=== PATIENT | female | born 1995 | race Hispanic/Latino ===

== ENCOUNTER 2022-08-13 16:20 | Emergency (ER) | payer SELFPAY ==
[2022-08-13] MEDS ORDERED: Ketorolac Tromethamine 30 MG/ML VIAL ONE (17:47)
[2022-08-13] MEDS ORDERED: diphenhydrAMINE 50 MG/ML VIAL ONE (17:47)
[2022-08-13] MEDS ORDERED: Metoclopramide HCl 10 MG/2 ML VIAL ONE (17:47)
== END 2022-08-13 19:25 | disposition home or self-care (01) ==
LOC: CSHERS 16:20
DX: R51.9 Headache, unspecified (principal)
CPT/HCPCS: 96365; 96375; J1200; J1885; J2765

== ENCOUNTER 2022-10-13 19:15 | Emergency (ER) | payer OTHER ==
[2022-10-13] MEDS ORDERED: Acetaminophen 500 MG TAB ONE (20:39)
== END 2022-10-13 21:52 | disposition home or self-care (01) ==
LOC: CSHERS 19:15
DX: J18.9 Pneumonia, unspecified organism (principal)
CPT/HCPCS: 71045; 93005

== ENCOUNTER 2022-10-22 16:09 | Observation (INO) | payer MEDICAID, OTHER ==
[2022-10-22] MEDS ORDERED: Ketorolac Tromethamine 30 MG/ML VIAL ONE (17:35)
[2022-10-22 18:06] LABS: Bilirubin Neg (Negative); Blood, Urine 10 (Negative); Clarity Clear (Clear); Glucose, Urine (Dipstick) Normal (Negative); Ketone, Urine 5 mg/dL (Negative); Leukocyte Negative (Negative); Nitrite Negative (Negative); Protein, Urine (Dipstick) 30 mg/dl (Neg-Trace); Specific Gravity, Urine 1.015 (1.005-1.030); Urobilinogen Normal mg/dL (Less than 2)
[2022-10-22 18:08] LABS: Pregnancy Test - Urine (BHCG) Negative (Negative)
[2022-10-22 18:09] LABS: Pregu Control Background? CLEAR/WHITE (CLR/WHITE); Pregu Control Bar Appear? YES (CONTROL BAR); Specific Gravity 1.015 (1.002-1.036)
[2022-10-22 18:18] LABS: Bacteria/HPF 1+ HPF (None Seen); CAUTI Indications for Culture Pelvic or flank pain; RBC/HPF 0-3 HPF (0-3); WBC/HPF 0-3 HPF (0-3)
[2022-10-22 18:19] LABS: Mucous/LPF 2+ LPF (<2+)
[2022-10-22 18:20] LABS: Urine Culture Reflex No No
[2022-10-22] MEDS ORDERED: Morphine 4 MG/ML VIAL ONE (18:59)
[2022-10-22] MEDS ORDERED: Diazepam 10 MG/2 ML SYRINGE ONE (19:00)
[2022-10-22 19:42] LABS: #Eosinphils 0.2 10x3/uL (0.0-0.5); #Monocytes 0.9 10x3/uL (0.0-1.1); %Basophils 0.4 % (0.0-2.0); %Eosinophils 2.5 % (0.0-6.0); %Lymphocytes 18.1 % (18.0-47.0); %Monocytes 12.4 % (0.0-10.0); %Neutrophils 66.3 % (40.0-75.0); Hemoglobin 8.8 g/dL (12.0-15.5); Mean Corpuscular HGB CONC 29.5 g/dL (32.0-36.0); Mean Corpuscular Hemoglobin 22.1 pg (27.0-33.0); Mean Corpuscular Volume 74.9 fl (81.6-98.3); Mean Platelet Volume 9.4 fl (7.4-10.4); Platelet Count 410 10x3/uL (150-450); RBC Distribution Width 17.6 % (11.5-14.5); Red Blood Cell (RBC) Count 3.98 10x6/uL (3.90-5.03); White Blood Cell (WBC) Count 7.5 10x3/uL (3.5-10.5)
[2022-10-22 19:51] LABS: ALT (SGPT) 29 U/L (8-55); AST (SGOT) 27 U/L (5-34); Albumin 3.9 g/dL (3.5-5.0); Alkaline Phosphatase 69 U/L (40-110); Anion Gap 11 mmol/L (10-20); BUN (Urea Nitrogen) 7 mg/dL (7.0-18.7); Bilirubin, Total 0.2 mg/dL (0.2-1.2); Calc. Creatinine Clearance 0 mL/min (70-130); Calcium 9.3 mg/dL (7.8-10.44); Carbon Dioxide 27 mmol/L (22-29); Chloride 107 mmol/L (98-107); Estimated GFR 104; Globulin 3.1 g/dL (2.4-3.5); Glucose 94 mg/dL (70-105); Potassium 3.8 mmol/L (3.5-5.1); Sodium 141 mmol/L (136-145)
[2022-10-22 20:36] LABS: Anisocytosis SLIGHT = 6-15 cells (100X) (0-5/hpf); Hypochromia SLIGHT = 6-15 cells (100X) (0-5/hpf); Microcytosis SLIGHT = 6-15 cells (100X) (0-5/hpf); Platelet Adequacy Comment Appears Adequate
[2022-10-22] MEDS ORDERED: Piperacillin/Tazobactam 3.375 GM VIAL ONE (20:51)
[2022-10-22] MEDS ORDERED: VANCOMYCIN 1.5 GM in Sodium Chloride 0.9% 500 ML IVPB SCH (21:15)
[2022-10-22] MEDS ORDERED: Ondansetron ODT 4 MG TAB PO PRN (21:53)
[2022-10-22] MEDS ORDERED: Morphine 4 MG/ML VIAL SLOW IVP PRN (21:53)
[2022-10-22] MEDS ORDERED: Ondansetron PF 4 MG/2 ML Vial IVP PRN (21:53)
[2022-10-22] MEDS ORDERED: Acetaminophen 325 MG TAB PO PRN (21:53)
[2022-10-22 22:22] LABS: Magnesium 2.2 mg/dL (1.6-2.6)
[2022-10-22] MEDS ORDERED: diphenhydrAMINE 50 MG/ML VIAL ONE (23:14)
[2022-10-23] MEDS ORDERED: Piperacillin/Tazobactam 3.375 GM VIAL ONE (00:31)
[2022-10-23] MEDS: Piperacillin/Tazobactam 3.375 GM in Sodium Chloride 0.9% 100 ML IVPB SCH ×2 (00:40→09:33)
[2022-10-23] MEDS: Sodium Chloride 0.9% 1,000 ML IV SCH ×2 (00:40→12:42)
[2022-10-23] MEDS ORDERED: HYDROcodone/Acetaminophen 5/325 mg Tablet ONE ×2 (00:44→05:17)
[2022-10-23] MEDS: HYDROcodone/Acetaminophen 5/325 mg Tablet PO PRN ×3 (00:45→10:08)
[2022-10-23 03:46] LABS: #Eosinphils 0.2 10x3/uL (0.0-0.5); #Monocytes 0.9 10x3/uL (0.0-1.1); #Neutrophils 6.4 10x3/uL (1.5-8.4); %Basophils 0.3 % (0.0-2.0); %Lymphocytes 14.4 % (18.0-47.0); %Monocytes 10.3 % (0.0-10.0); %Neutrophils 72.8 % (40.0-75.0); Hemoglobin 8.9 g/dL (12.0-15.5); Mean Corpuscular HGB CONC 29.2 g/dL (32.0-36.0); Mean Corpuscular Hemoglobin 22.3 pg (27.0-33.0); Mean Corpuscular Volume 76.3 fl (81.6-98.3); Mean Platelet Volume 9.8 fl (7.4-10.4); Platelet Count 396 10x3/uL (150-450); RBC Distribution Width 17.8 % (11.5-14.5); White Blood Cell (WBC) Count 8.8 10x3/uL (3.5-10.5)
[2022-10-23 03:59] LABS: Anion Gap 11 mmol/L (10-20); BUN (Urea Nitrogen) 8 mg/dL (7.0-18.7); Calc. Creatinine Clearance 0 mL/min (70-130); Calcium 8.3 mg/dL (7.8-10.44); Carbon Dioxide 25 mmol/L (22-29); Chloride 108 mmol/L (98-107); Estimated GFR 97; Glucose 85 mg/dL (70-105); Potassium 4.4 mmol/L (3.5-5.1); Sodium 140 mmol/L (136-145)
[2022-10-23 04:11] LABS: Anisocytosis SLIGHT = 6-15 cells (100X) (0-5/hpf); Hypochromia SLIGHT = 6-15 cells (100X) (0-5/hpf); Platelet Adequacy Comment Appears Adequate
[2022-10-23] MEDS ORDERED: Ferrous Sulfate 325 MG TAB PO SCH (08:00)
[2022-10-23] MEDS ORDERED: Vancomycin HCl 1 GM in Sodium Chloride 0.9% 250 ML 250 ML IVPB SCH (09:00)
[2022-10-23] MEDS ORDERED: Multivitamin W/ Minerals 1 TAB PO SCH (09:00)
[2022-10-23] MEDS ORDERED: Vancomycin 1 GM VIAL ONE (09:14)
[2022-10-23 09:20] VITALS: BMI 26.5
[2022-10-23 12:31] VITALS: TEMP 97.4
[2022-10-23] MEDS ORDERED: Acetaminophen/Codeine 30-300mg Tablet PO PRN (13:46)
[2022-10-23 17:19] VITALS: BP 110/52
== END 2022-10-23 11:03 | disposition home or self-care (01) ==
LOC: CSHERS 16:09 → INTOOBSV 21:08 → CSHERHOLD 21:08 → CSHTELE 10-23 08:28
PROVIDERS: ADMIT Family Medicine; ATTEND Nurse Practitioner Family
DX: M54.50 Low back pain, unspecified (principal); T79.7XXA Traumatic subcutaneous emphysema, initial encounter; F32.A Depression, unspecified; G40.909 Epilepsy, unspecified, not intractable, without status epilepticus; D50.9 Iron deficiency anemia, unspecified; N92.0 Excessive and frequent menstruation with regular cycle; Z79.899 Other long term (current) drug therapy
CPT/HCPCS: 36415; 71045; 74176; 80048; 80053; 81001; 81025; 83735; 85025; 96365; 96366; 96372; 96375; 96376; G0378; J1200; J1650; J1885; J2270; J2543; J3360; J3370; J3490; J7030; J7050